=== PATIENT | male | born 1980 | race Caucasian/White ===

== ENCOUNTER 2020-01-31 21:00 | Emergency (ER) | payer SELFPAY | END 2020-01-31 21:01 | disposition left against medical advice (07) | LOC: ED 21:00 | DX: Z53.9 Procedure and treatment not carried out, unspecified reason (principal) ==

== ENCOUNTER 2020-04-11 11:02 | Emergency (ER) | payer SELFPAY ==
[2020-04-11 11:08] VITALS: BP 87/72; PULSE 109; O2SAT 100
[2020-04-11] MEDS ORDERED: Zofran 4 MG/2 ML VIAL IV ONE (11:22)
[2020-04-11] MEDS ORDERED: MORPHINE SULFATE 4 MG INJ IV ONE (11:22)
[2020-04-11] MEDS ORDERED: Sodium Chloride 0.9% 1000 ML 1,000 ML IV SCH (11:30)
[2020-04-11 11:31] LABS: Absolute Neutrophil Ct (ANC) 16.55 (1.4-6.9); BASOPHIL % 0.2 % (0.0-0.4); Basophil (Absolute #) 0.04 (0-0.4); Eosinophil (Absolute #) 0.61 (0-0.5); Hematocrit 33.4 % (42-50); Hemoglobin 10.6 gm/dl (12.5-18.0); Lymphocyte (Absolute #) 2.06 (1.0-4.6); Lymphocytes % 10.2 % (24.0-44.0); Mean Cell Volume 92.8 fl (78-100); Mean Corpuscular Hemoglobin 29.4 pg (26-32); Mean Corpuscular Hgb Concent. 31.7 g/dl (32-36); Mean Platelet Volume 11.6 fl (7.5-11.0); Monocyte (Absolute #) 0.88 (0.0-1.3); Monocytes % 4.4 % (0.0-12.0); Neutrophil % 82.2 % (36.0-66.0); Platelet Count 282 K/mm3 (150-450); Red Cell Distribution Width 13.2 % (11.5-14.0); White Blood Count 20.1 K/mm3 (4.0-10.5)
[2020-04-11] MEDS ORDERED: MORPHINE SULFATE 4 MG INJ ONE (11:33)
[2020-04-11] MEDS ORDERED: Zofran 4 MG/2 ML VIAL ONE (11:33)
[2020-04-11] MEDS ORDERED: Sodium Chloride 0.9% 1000 ML 1,000 ML ONE (11:33)
[2020-04-11 11:47] LABS: ALBUMIN 3.8 g/dL (3.5-5.0); ALKALINE PHOSPHATASE 93 U/L (38-126); ANION GAP 10.5 MEQ/L (5-15); BLOOD UREA NITROGEN 19 mg/dL (9-20); CHLORIDE 111 mmol/L (98-107); Calcium 8.8 mg/dL (8.4-10.2); Carbon Dioxide 23 mmol/L (22-30); Glucose 142 mg/dL (74-106); LIPASE 59 U/L (23-300); Potassium 4.1 mmol/L (3.5-5.1); SGOT/AST 24 U/L (17-59); SGPT/ALT 18 U/L (0-50); SODIUM 141 mmol/L (137-145); Total Protein 6.8 g/dL (6.3-8.2)
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
[2020-04-11 12:28] LABS: Slide Review 1 YES
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
== END 2020-04-11 13:02 | disposition left against medical advice (07) ==
LOC: ED 11:02
DX: R10.12 Left upper quadrant pain (principal); V00-Y99 External causes of morbidity; Y93.9 Activity, unspecified; Y92.9 Unspecified place or not applicable; D64.9 Anemia, unspecified; D72.829 Elevated white blood cell count, unspecified
CPT/HCPCS: 36415; 74177; 80053; 83690; 84484; 85025; 96374; 96375; 99284; J2270; J2405

== ENCOUNTER 2021-03-17 12:19 | Emergency (ER) | payer OTHER ==
[2021-03-17] MEDS ORDERED: Sodium Chloride 0.9% 1000 ML 1,000 ML IV STA (12:29)
[2021-03-17 12:34] VITALS: BP 116/73
[2021-03-17] MEDS ORDERED: Sodium Chloride 0.9% 1000 ML 1,000 ML ONE (12:47)
[2021-03-17 12:55] LABS: Absolute Neutrophil Ct (ANC) 10.03 (1.4-6.9); BASOPHIL % 0.2 % (0.0-0.4); Basophil (Absolute #) 0.03 (0-0.4); Eosinophil (Absolute #) 0.13 (0-0.5); Hematocrit 39.8 % (42-50); Hemoglobin 12.7 gm/dl (12.5-18.0); Lymphocyte (Absolute #) 1.75 (1.0-4.6); Lymphocytes % 13.8 % (24.0-44.0); Mean Cell Volume 91.1 fl (78-100); Mean Corpuscular Hemoglobin 29.1 pg (26-32); Mean Corpuscular Hgb Concent. 31.9 g/dl (32-36); Mean Platelet Volume 11.2 fl (7.5-11.0); Monocyte (Absolute #) 0.72 (0.0-1.3); Monocytes % 5.7 % (0.0-12.0); Neutrophil % 79.3 % (36.0-66.0); Platelet Count 316 K/mm3 (150-450); Red Blood Count 4.37 M/mm3 (4.1-5.6); Red Cell Distribution Width 12.9 % (11.5-14.0); White Blood Count 12.7 K/mm3 (4.0-10.5)
[2021-03-17 12:56] LABS: INR 1.02 (0.8-3.0)
[2021-03-17 13:00] LABS: ALBUMIN 4.3 g/dL (3.5-5.0); ALKALINE PHOSPHATASE 88 U/L (38-126); AMYLASE 73 U/L (30-110); ANION GAP 11.4 MEQ/L (5-15); BLOOD UREA NITROGEN 12 mg/dL (9-20); CHLORIDE 105 mmol/L (98-107); Calcium 9.1 mg/dL (8.4-10.2); Carbon Dioxide 25 mmol/L (22-30); Creatinine 1 0.72 mg/dL (0.66-1.25); EST GLOMERULAR FILTRATION RATE > 60.0 ML/MIN; Glucose 103 mg/dL (74-106); LIPASE 63 U/L (23-300); Potassium 4.1 mmol/L (3.5-5.1); SGOT/AST 22 U/L (17-59); SGPT/ALT 14 U/L (0-50); SODIUM 137 mmol/L (137-145); Total Protein 7.4 g/dL (6.3-8.2)
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
[2021-03-17 13:55] VITALS: PULSE 69
[2021-03-17 14:21] LABS: Appearance CLEAR (CLEAR); Bilirubin NEGATIVE (NEGATIVE); Blood NEGATIVE Ery/ul (0-5); Glucose NEGATIVE (NEGATIVE); Ketones NEGATIVE (NEGATIVE); Leukocyte Esterase NEGATIVE (NEGATIVE); Mucus SLIGHT /HPF (NEGATIVE); Nitrite NEGATIVE (NEGATIVE); Protein,Urine Dip NEGATIVE (Negative); Specific Gravity 1.051 (1.005-1.025); Urobilinogen NEGATIVE mg/dL (0-1)
[2021-03-17 15:10] VITALS: O2SAT 98
--- NOTE | 2021-03-17 17:47 | XRAY ---
Indication: Abdomen pain. Comparison: None Portable chest demonstrates normal heart, lungs, and bony thorax.
--- NOTE | 2021-03-17 17:47 | XRAY ---
Indication: Abdomen pain and nausea. Multiple contiguous axial images obtained through the abdomen and pelvis using 80 cc of Isovue-370 contrast. Comparison: April 11, 2020. Lung bases again demonstrates minimal dependent atelectasis. No infiltrate or effusion. Heart not enlarged. Noncontrasted stomach and bowel loops nonobstructed. Ascending and transverse colon demonstrates new bowel wall thickening with minimal pericolonic stranding favoring colitis. Tiny pelvic free fluid presumed reactive. Normal appendix. No walled off fluid collection or free air. New 1 cm right mid renal cortical cyst. Remaining liver, gallbladder, pancreas, spleen, adrenal glands, kidneys, ureters, bladder, and aorta appear unremarkable. No pathologic retroperitoneal lymphadenopathy. Osseous structures intact. Impression: 1. New findings favor colitis with tiny pelvic free fluid. 2. New right renal cyst. Comment: Preliminary interpretation was made by [facility]. No critical discrepancy.
== END 2021-03-17 15:25 | disposition home or self-care (01) ==
LOC: ED 12:19
DX: K52.9 Noninfective gastroenteritis and colitis, unspecified (principal)
CPT/HCPCS: 36000; 36415; 71045; 74177; 80053; 81001; 82150; 83605; 83690; 84484; 85025; 85610; 93005; 96360; 99284

== ENCOUNTER 2023-02-27 12:47 | Emergency (ER) | payer OTHER ==
[2023-02-27] MEDS ORDERED: SUBLIMAZE 100 MCG/2 ML IV ONE (12:49)
[2023-02-27] MEDS ORDERED: Sodium Chloride 0.9% 1000 ML 1,000 ML ONE (12:59)
[2023-02-27] MEDS ORDERED: SUBLIMAZE 100 MCG/2 ML ONE (12:59)
[2023-02-27] MEDS ORDERED: Sodium Chloride 0.9% 1000 ML 1,000 ML IV SCH (13:00)
--- NOTE | 2023-02-27 13:08 | XRAY ---
Indication: Chest pain. Comparison: March 17, 2021 Portable chest again demonstrates normal heart, lungs, and bony thorax.
[2023-02-27 13:14] LABS: Absolute Neutrophil Ct (ANC) 13.59 x10^3/uL (1.4-6.9); BASOPHIL % 0.4 % (0.0-0.4); Basophil (Absolute #) 0.07 x10^3/uL (0-0.4); Eosinophil % 0.3 % (0.00-5.0); Eosinophil (Absolute #) 0.05 x10^3/uL (0-0.5); Hematocrit 37.7 % (42-50); IMMATURE GRAN # 0.07 x10^3u/L (0.00-0.03); IMMATURE GRAN % 0.4 % (0.00-0.4); Lymphocyte (Absolute #) 1.55 x10^3/uL (1.0-4.6); Lymphocytes % 9.8 % (24.0-44.0); Mean Cell Volume 90.2 fL (78-100); Mean Corpuscular Hemoglobin 28.7 pg (26-32); Mean Corpuscular Hgb Concent. 31.8 g/dL (32-36); Mean Platelet Volume 10.8 fL (7.5-11.0); Monocyte (Absolute #) 0.48 x10^3/uL (0.0-1.3); Neutrophil % 86.1 % (36.0-66.0); Platelet Count 345 x10^3/uL (150-450); Red Blood Count 4.18 x10^6/uL (4.1-5.6); Red Cell Distribution Width 12.2 % (11.5-14.0); White Blood Count 15.8 x10^3/uL (4.0-10.5)
[2023-02-27 13:16] LABS: Erythrocyte Sedimentation Rate 16 mm/hr (0-15)
[2023-02-27 13:26] LABS: D-DIMER QUANTITATIVE 0.19 mg/L (0.0-0.50); INR 0.97 (0.8-3.0); PROTIME 10.6 SECONDS (9.4-12.5)
[2023-02-27 13:34] LABS: ALKALINE PHOSPHATASE 123 U/L (38-126); AMYLASE 66 U/L (30-110); ANION GAP 12.2 MEQ/L (5-15); BLOOD UREA NITROGEN 18 mg/dL (9-20); CHLORIDE 102 mmol/L (98-107); Calcium 8.5 mg/dL (8.4-10.2); Carbon Dioxide 26 mmol/L (22-30); EST GLOMERULAR FILTRATION RATE > 60.0 ML/MIN; Glucose 163 mg/dL (74-106); LIPASE 52 U/L (23-300); NT PRO BNPII 55.9 pg/mL (<300); Potassium 4.1 mmol/L (3.5-5.1); SGOT/AST 29 U/L (17-59); SGPT/ALT 24 U/L (0-50); SODIUM 135 mmol/L (137-145); Total Protein 7.3 g/dL (6.3-8.2)
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
[2023-02-27 16:38] LABS: Appearance Clear (Clear); Bacteria None Seen /HPF (None Seen); Bilirubin Negative (Negative); Blood Negative (Negative); Epithelial Cells None Seen /HPF (None Seen); Glucose, Urine Negative (Negative); Ketones Trace (Negative); Leukocyte Esterase Negative (Negative); Nitrite Negative (Negative); Protein,Urine Dip Trace (Negative); RBC 0-2 /HPF (0-5); WBC 0-2 /HPF (0-5)
[2023-02-27 16:41] LABS: ADD URINE CULTURE? NO (NO)
[2023-02-27 16:54] LABS: Barbiturate,Urine NEGATIVE (NEGATIVE); Benzodiazepine,Urine NEGATIVE (NEGATIVE); Cocaine,Urine NEGATIVE (NEGATIVE); Methadone,Urine NEGATIVE (NEGATIVE); Opiate,Urine NEGATIVE (NEGATIVE); PCP,Urine NEGATIVE (NEGATIVE); THC,Urine POSITIVE (NEGATIVE)
[2023-02-27 16:57] VITALS: BP 115/69; PULSE 84; O2SAT 98
[2023-02-27 17:21] LABS: Amphetamine,Urine POSITIVE (NEGATIVE)
== END 2023-02-27 17:00 | disposition home or self-care (01) ==
LOC: ED 12:47
DX: R07.89 Other chest pain (principal); Z79.891 Long term (current) use of opiate analgesic; Z28.310 Unvaccinated for COVID-19; Z72.0 Tobacco use
CPT/HCPCS: 36000; 36415; 71045; 80053; 80307; 81001; 82150; 83605; 83690; 83735; 83880; 84484; 85025; 85379; 85610; 85652; 85730; 93005; 93041; 96374; 99284; J3010

== ENCOUNTER 2023-07-31 12:14 | Emergency (ER) | payer SELFPAY ==
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
[2023-07-31 12:25] VITALS: BP 130/90; PULSE 109; RESP 20; TEMP 97.2; O2SAT 100
[2023-07-31] MEDS ORDERED: Norflex 60 MG/2 ML IM ONE (12:37)
[2023-07-31] MEDS ORDERED: PERCOCET TABLET 5/325MG PO STA (12:37)
[2023-07-31] MEDS ORDERED: solu-MEDROL 125 MG, Sterile H2O 10 ml 2 ML IM ONE ×2 (12:37)
[2023-07-31] MEDS ORDERED: Sterile H2O 10 ml IJ ONE (12:51)
[2023-07-31] MEDS ORDERED: Norflex 60 MG/2 ML ONE (12:52)
[2023-07-31] MEDS ORDERED: solu-MEDROL ONE (12:52)
[2023-07-31] MEDS ORDERED: PERCOCET TABLET 5/325MG ONE (12:52)
--- NOTE | 2023-07-31 13:00 | XRAY ---
Indication: Pain following injury 2 weeks ago. Comparison: None 3 view left shoulder obtained. No bony, articular, or soft tissue abnormalities.
== END 2023-07-31 13:31 | disposition home or self-care (01) ==
LOC: ED 12:14
DX: S49.92XA Unspecified injury of left shoulder and upper arm, initial encounter (principal); Z79.52 Long term (current) use of systemic steroids; Z28.310 Unvaccinated for COVID-19; Z72.0 Tobacco use
CPT/HCPCS: 73030; 96372; 99283; J2360; J2930; A9270-GY

== ENCOUNTER 2023-08-07 17:54 | Emergency (ER) | payer SELFPAY ==
[2023-08-07 18:19] VITALS: TEMP 98.1
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
[2023-08-07 19:42] VITALS: BP 116/81; PULSE 86; RESP 18
[2023-08-07 20:02] VITALS: O2SAT 99
--- NOTE | 2023-08-07 21:09 | XRAY ---
Indication: Status post fall. Loss of consciousness. Multiple contiguous axial images obtained through the head without contrast. Comparison: May 23, 2006 Normal appearing brain parenchyma, ventricles, and bony calvarium for patient's age. Visualized paranasal sinuses and mastoid air cells are clear. Impression: Continued normal CT head without contrast exam.
--- NOTE | 2023-08-07 21:13 | XRAY ---
Indication: Status post fall. Loss of consciousness. Multiple contiguous axial images obtained through the cervical spine. Sagittal and coronal reformatted images obtained. Comparison: None Axial images negative for acute fracture, suspicious bony lesions, or spinal canal stenosis. Mild C3-C4 and C5-C7 degenerative endplate spurring. Additional atlantoaxial degenerative changes with incidental os odontoideum. Facets are symmetric. Sagittal and coronal reformatted images demonstrates normal alignment. Mild C3-C4 and C5-C7 disc space narrowing. No acute compression fracture, subluxation, or jumped facet. Normal appearing craniocervical junction. Visualized noncontrasted soft tissues including lung apices are unremarkable. Impression: Multilevel degenerative changes. Negative acute fracture/subluxation.
== END 2023-08-07 20:14 | disposition home or self-care (01) ==
LOC: ED 17:54
DX: S09.90XA Unspecified injury of head, initial encounter (principal); W19.XXXA Unspecified fall, initial encounter; Y92.64 Mine or pit as the place of occurrence of the external cause; Y99.0 Civilian activity done for income or pay; R51.9 Headache, unspecified; M54.2 Cervicalgia; Z28.310 Unvaccinated for COVID-19; Z72.0 Tobacco use
CPT/HCPCS: 70450; 72125; 99283